=== PATIENT | female | born 1965 | race Caucasian/White ===

== ENCOUNTER 2016-07-29 13:18 | Emergency (ER) | payer MEDICAID ==
[~2016-07-29] VITALS: Ht 154.9 cm; Wt 104.3 kg
[2016-07-29 13:20] VITALS: BP_SYST 153
[2016-07-29 15:16] VITALS: BP_SYST 153
== END 2016-07-29 15:16 | disposition home or self-care (01) ==
LOC: SED 13:18
DX: J20.9 Acute bronchitis, unspecified (principal); F17.210 Nicotine dependence, cigarettes, uncomplicated; J45.909 Unspecified asthma, uncomplicated; Z71.6 Tobacco abuse counseling
CPT/HCPCS: 99283

== ENCOUNTER 2018-10-18 19:28 | Emergency (ER) | payer MEDICAID ==
[~2018-10-18] VITALS: Ht 157.5 cm; Wt 100.2 kg
[2018-10-18 19:40] VITALS: BP_SYST 157
--- NOTE | 2018-10-18 19:42 | NUR ---
Patient to ER bed 04 to gown for evaluation. Side rails up.
--- NOTE | 2018-10-18 20:00 | NUR ---
Patient AOx4, ambulatory, presents to ER with complaint of hyperglycemia today. Patient states she was diagnosed with borderline hyperglycemia. Patient states her friend checked his blood sugar and decided to check hers because she was feeling sick and noted a blood sugar of 360. No other symptoms or complaints. Patient states hx of Hepatitis B & C.
--- NOTE | 2018-10-18 20:01 | NUR ---
ER MD Dick at bedside for medical evaluation.
[2018-10-18] MEDS ORDERED: NACL 0.9% 1,000 ML IV ONE ×3 (20:04→22:30)
--- NOTE | 2018-10-18 20:12 | NUR ---
# 20 gauge angiocath placed to LAC. Use of asceptic technique. Opsite placed over site. Blood return noted. Blood for lab drawn from site. Flushed with 10 cc of normal saline. No evidence of infiltration noted. Patient tolerated well.
[2018-10-18] MEDS ORDERED: ONDANSETRON HCL 4 MG/2 ML VIAL IVP ONE (20:15)
[2018-10-18 20:18] LABS: BASOPHILS % (AUTO) 0.2 % (0.0-2.0); EOSINOPHILS # (AUTO) 0.3 K/uL (0.0-0.4); EOSINOPHILS % (AUTO) 3.1 % (0.0-4.0); HEMATOCRIT 48.4 % (36-48); HEMOGLOBIN 16.7 g/dL (12.0-16.0); LYMPHOCYTES # (AUTO) 2.2 K/uL (1.0-5.5); LYMPHOCYTES % (AUTO) 24.7 % (20.5-51.5); MEAN CORPUSCULAR HEMOGLOBIN 32 pg (27-31); MEAN CORPUSCULAR HGB CONC 35 % (32-36); MEAN CORPUSCULAR VOLUME 94 fL (79.0-98.0); MONOCYTES # (AUTO) 1.2 K/uL (0.0-1.0); MONOCYTES % (AUTO) 13.8 % (1.7-9.3); NEUTROPHILS # (AUTO) 5.1 K/uL (1.8-7.7); NEUTROPHILS % (AUTO) 58.2 % (40.0-70.0); PLATELET COUNT (AUTO) 229 K/uL (130-430); RED BLOOD CELL COUNT(AUTO) 5.15 MIL/uL (4.2-6.2); RED CELL DISTRIBUTION WIDTH 14.2 % (9.0-15.0); WHITE BLOOD COUNT (AUTO) 8.8 K/uL (4.8-10.8)
--- NOTE | 2018-10-18 21:00 | NUR ---
IVF infusing with no s/s of infiltration at this time. Will cont to monitor.
[2018-10-18 21:01] LABS: BILIRUBIN,URINE NEGATIVE (NEGATIVE); CLARITY/URINE CLEAR (CLEAR); COLOR,URINE YELLOW (YELLOW); GLUCOSE,URINE 3+ (NEGATIVE); KETONES,URINE NEGATIVE (NEGATIVE); LEUKOCYTE ESTERASE ,URINE NEGATIVE (NEGATIVE); NITRITE, URINE NEGATIVE (NEGATIVE); PH,URINE 5.5 (5.0-8.0); PROTEIN URINE NEGATIVE (NEGATIVE); UROBILINOGEN,URINE 0.2 (0.2-1.0)
[2018-10-18 21:19] LABS: CALCIUM 9.2 mg/dL (8.4-11.0); CREATININE 0.94 mg/dL (0.55-1.30); POTASSIUM 4.7 mmol/L (3.5-5.1)
[2018-10-18 21:23] LABS: ALBUMIN 2.7 g/dL (3.4-4.8); TOTAL BILIRUBIN 0.5 mg/dL (0.0-1.0)
[2018-10-18 21:29] LABS: BLOOD, URINE TRACE (NEGATIVE)
[2018-10-18 22:14] LABS: BACTERIA,URINE FEW /HPF (None Seen); RBC,URINE 0-3 /HPF (0-3); WBC,URINE 0-3 /HPF (0-3)
[2018-10-18 22:15] LABS: MUCUS,URINE None Seen /LPF (None Seen); YEAST,URINE Moderate /HPF (None Seen)
[2018-10-18 22:20] LABS: INR 0.9 (0.8-1.2); PROTHROMBIN TIME 9.3 SECS (9.5-12.5)
[2018-10-18] MEDS ORDERED: OMEP40CA33 PO (22:50)
--- NOTE | 2018-10-18 23:00 | NUR ---
IVF infusing with no s/s of infiltration at this time. Will cont to monitor.
[2018-10-18 23:05] LABS: CALCIUM 9.1 mg/dL (8.4-11.0); CREATININE 0.96 mg/dL (0.55-1.30); POTASSIUM 4.8 mmol/L (3.5-5.1)
[2018-10-19 00:28] VITALS: BP_SYST 145
--- NOTE | 2018-10-19 00:28 | NUR ---
Patient given written and verbal discharge instructions and verbalizes understanding. ER MD discussed with patient the results and treatment provided. Patient in stable condition. ID arm band removed. IV catheter removed intact and dressing applied, no active bleeding. Rx Albuterol and Metformin given. Patient educated on pain management and to follow up with PMD. Pain Scale 0. Opportunity for questions provided and answered. Medication side effect fact sheet provided.
== END 2018-10-19 00:28 | disposition home or self-care (01) ==
LOC: SED 19:28
DX: E11.65 Type 2 diabetes mellitus with hyperglycemia (principal); J45.909 Unspecified asthma, uncomplicated
CPT/HCPCS: 36415; 71045; 80048; 80053; 81000; 82150; 82550; 82962; 83605; 83690; 84484; 85025; 85610; 85730; 87040; 93005; 96360; 96361; 99284; J7030; J2405

== ENCOUNTER 2020-09-06 01:20 | Emergency (ER) | payer MEDICAID, OTHER ==
[~2020-09-06] VITALS: Ht 160 cm; Wt 99.8 kg
[~2020-09-06 01:20] MED LIST: OMEP40CA13 PO
[2020-09-06 01:25] VITALS: BP_SYST 134
[2020-09-06] MEDS ORDERED: AMOXICILLIN 500 MG CAPSULE PO ONE (03:15)
[2020-09-06] MEDS ORDERED: BENZOCAINE/MENTHOL 1 EACH LOZENGE MM ONE (03:15)
[2020-09-06] MEDS ORDERED: ACETAMINOPHEN 500 MG TABLET ONE (03:27)
[2020-09-06] MEDS ORDERED: ACETAMINOPHEN 500 MG TABLET PO ONE (03:30)
[2020-09-06] MEDS ORDERED: AMOX-520 PO (04:41)
[2020-09-06] MEDS ORDERED: BENZ1LOZ58 PO (04:42)
[2020-09-06 04:49] VITALS: BP_SYST 134
== END 2020-09-06 04:50 | disposition home or self-care (01) ==
LOC: SED 01:20
DX: J02.9 Acute pharyngitis, unspecified (principal); E11.9 Type 2 diabetes mellitus without complications; Z20.822 Contact with and (suspected) exposure to COVID-19
CPT/HCPCS: 36415; 86403; 87081; 99283